=== PATIENT | female | born 1950 | race Caucasian/White ===

== ENCOUNTER → 2016-09-18 | Outpatient (CLI) | payer BC ==
[~2016-09-18] MED LIST: LOSA1TAB16 PO; OMEP-110 PO
[2016-09-18 11:50] LABS: HEMOGLOBIN 15.4 g/dL (11.7-16.4)
[2016-09-18 12:04] LABS: BLOOD UREA NITROGEN 21 mg/dL (7-18)
[2016-09-18 12:08] LABS: ASPARTATE AMINO TRANSFERASE 19 U/L (15-37)
[2016-09-19 11:06] LABS: THYROGLOBULIN AB <1.0 IU/mL (0.0-0.9)
== END | disposition home or self-care (01) ==
LOC: STAR 10:46
PROVIDERS: ATTEND Surgery
DX: Z01.818 Encounter for other preprocedural examination (principal)
CPT/HCPCS: 36415; 71020; 80053; 84432; 85025; 86800; 93005

== ENCOUNTER 2016-09-28 06:07 | Day surgery (SDC) | payer BC, OTHER ==
[2016-09-18 11:05] VITALS: BP 151/87
[~2016-09-28] VITALS: Ht 172.7 cm; Wt 89.0 kg
[2016-09-28] MEDS ORDERED: ACETAMINOPHEN 500 MG TABLET PO STA (06:22)
[2016-09-28] MEDS ORDERED: GABAPENTIN 300 MG CAPSULE PO STA (06:22)
[2016-09-28] MEDS ORDERED: LACTATED RINGERS 1,000 ML IV SCH ×2 (06:53→07:20)
[2016-09-28] MEDS ORDERED: FENTANYL PF 100 MCG/2ML ONE ×2 (07:26→07:38)
[2016-09-28] MEDS ORDERED: PROPOFOL 10 MG/ML, 20ML ONE (07:26)
[2016-09-28] MEDS ORDERED: GLYCOPYRROLATE 0.2MG/1ML ONE (07:26)
[2016-09-28] MEDS ORDERED: DEXAMETHASONE 4 MG/ML, 5ML ONE (07:26)
[2016-09-28] MEDS ORDERED: ONDANSETRON 2MG/ML, 2ML ONE ×2 (07:26→09:15)
[2016-09-28] MEDS ORDERED: OXYcodone/APAP 5/325MG TABLET PO PRN (07:30)
[2016-09-28] MEDS ORDERED: HYDROmorphone 2 MG/ML, 1ML IVPush PRN (07:30)
[2016-09-28] MEDS ORDERED: ONDANSETRON 2MG/ML, 2ML IVPush PRN ×2 (07:30→08:00)
[2016-09-28] MEDS ORDERED: OXYcodone 5 MG/5 ML ORAL.SOL UDC PO PRN (08:00)
[2016-09-28] MEDS ORDERED: hydrALAzine 20 MG/ML, 1ML IV PRN (08:00)
[2016-09-28] MEDS ORDERED: FENTANYL PF 100 MCG/2ML IV PRN (08:00)
[2016-09-28] MEDS ORDERED: LABETALOL 5MG/ML, 20ML IV PRN (08:00)
[2016-09-28] MEDS ORDERED: DIPHENHYDRAMINE 50 MG/ML, 1ML ONE (09:15)
[2016-09-28] MEDS: DIPHENHYDRAMINE 50 MG/ML, 1ML IVPush PRN ×2 (09:26→09:56)
[2016-09-28] MEDS ORDERED: HYDROmorphone 2 MG/ML, 1ML ONE (09:49)
[2016-09-28] MEDS: HYDROmorphone 1 MG/ML, 1ML IV PRN ×2 (09:51→10:08)
== END 2016-09-28 14:45 | disposition home or self-care (01) ==
LOC: OUT 06:07
PROVIDERS: ATTEND Surgery
DX: D34 Benign neoplasm of thyroid gland (principal); E21.0 Primary hyperparathyroidism; I10 Essential (primary) hypertension; K21.9 Gastro-esophageal reflux disease without esophagitis; E78.00 Pure hypercholesterolemia, unspecified; E66.9 Obesity, unspecified; Z68.29 Body mass index [BMI] 29.0-29.9, adult
CPT/HCPCS: 60220; 60500; 88305; 88307; 88331; 88333; 95865; 95940; C1760; J1100; J1170; J1200; J2405; J2704; J3010; J7120; J3490